=== PATIENT | male | born 1990 | race Native Hawaiian/Other Pacific Islander ===

== ENCOUNTER 2018-01-05 09:34 | Emergency (ER) | payer OTHER ==
[~2018-01-05] VITALS: Ht 182.9 cm; Wt 70.3 kg
[~2018-01-05 09:34] MED LIST: Permethrin60 GM TP
== END 2018-01-05 10:54 | disposition home or self-care (01) ==
LOC: ER 09:34
DX: T40.1X1A Poisoning by heroin, accidental (unintentional), initial encounter (principal); F17.200 Nicotine dependence, unspecified, uncomplicated
CPT/HCPCS: 99283

== ENCOUNTER 2020-10-22 21:16 | Observation (INO) | payer OTHER ==
[~2020-10-22] VITALS: Ht 182.9 cm; Wt 77.1 kg
[2020-10-22] MEDS ORDERED: Vistaril50 MG PO (21:26)
[2020-10-22] MEDS ORDERED: LAMO25 (21:26)
== END 2020-10-23 01:50 | disposition home or self-care (01) ==
LOC: ER 21:16 → EOR 21:17
PROVIDERS: ADMIT Emergency Medicine
DX: F31.9 Bipolar disorder, unspecified (principal); F45.22 Body dysmorphic disorder; F41.9 Anxiety disorder, unspecified; F11.10 Opioid abuse, uncomplicated; R45.87 Impulsiveness; Z79.899 Other long term (current) drug therapy
CPT/HCPCS: 90714; 99285; G0378

== ENCOUNTER 2021-05-18 08:16 | Emergency (ER) | payer OTHER ==
[~2021-05-18] VITALS: Ht 182.9 cm; Wt 79.4 kg
[~2021-05-18 08:16] MED LIST changes: +LAMO25; +Vistaril50 MG PO
[2021-05-18] MEDS ORDERED: NARCAN4 M1 (10:10)
== END 2021-05-18 10:27 | disposition home or self-care (01) ==
LOC: ER 08:16
DX: T40.1X1A Poisoning by heroin, accidental (unintentional), initial encounter (principal); Z79.899 Other long term (current) drug therapy
CPT/HCPCS: 36415; 96361; 96374; 99285-25; J2405; J7030

== ENCOUNTER 2022-01-29 04:58 | Emergency (ER) | payer OTHER ==
[~2022-01-29] VITALS: Ht 182.9 cm; Wt 83.9 kg
[~2022-01-29 04:58] MED LIST changes: +NARCAN4 M1
[2022-01-29] MEDS ORDERED: Robaxin750 MG PO (06:16)
== END 2022-01-29 06:24 | disposition home or self-care (01) ==
LOC: ER 04:58
DX: S39.012A Strain of muscle, fascia and tendon of lower back, initial encounter (principal); M54.16 Radiculopathy, lumbar region; X58.XXXA Exposure to other specified factors, initial encounter
CPT/HCPCS: 96372; 99283-25; A9270; J1885